=== PATIENT | male | born 1960 | race African-American/Black ===

== ENCOUNTER 2017-11-15 10:52 | Emergency (ER) | payer MEDICAID, OTHER ==
[~2017-11-15] VITALS: Ht 188 cm; Wt 81.6 kg
[2017-11-15 10:46] VITALS: BP 158/80
[~2017-11-15 10:52] MED LIST: NKM; PROCHLORPERAZINE5 MG ORAL; ZANTAC150 MG ORAL
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
[2017-11-15] MEDS ORDERED: Ketorolac 30mg Inj IV ONE (11:15)
[2017-11-15] MEDS ORDERED: Haloperidol 5mg/ml Inj IM ONE (11:15)
[2017-11-15 11:30] LABS: HEMOGLOBIN 15.7 G/DL (14.2-18.0); MEAN CORPUSCULAR VOLUME 98 FL (80-99); PLATELET COUNT 176 K/UL (150-450); RED BLOOD COUNT 4.68 M/UL (4.70-6.10); RED CELL DISTRIBUTION WIDTH 11.6 % (11.6-14.8); WHITE BLOOD COUNT 14.5 K/UL (4.8-10.8)
[2017-11-15 11:37] LABS: INR 0.9 (0.9-1.1)
[2017-11-15 11:56] LABS: APPEARANCE,URINE CLEAR; BILIRUBIN, URINE NEGATIVE (NEGATIVE); COLOR,URINE PALE YELLOW; GLUCOSE, URINE (UA) NEGATIVE (NEGATIVE); KETONES,URINE 4+ (NEGATIVE); LEUKOCYTE ESTERASE ,URINE 1+ (NEGATIVE); NITRITE,URINE POSITIVE (NEGATIVE); PH,URINE 8 (4.5-8.0); PROTEIN,URINE 1+ (NEGATIVE); UROBILINOGEN,URINE NORMAL MG/DL (0.0-1.0)
[2017-11-15 12:17] LABS: ALANINE AMINOTRANSFERASE 20 U/L (12-78); ALBUMIN 3.9 G/DL (3.4-5.0); ALKALINE PHOSPHATASE 68 U/L (46-116); ANION GAP 16 mmol/L (5-15); ASPARTATE AMINO TRANSFERASE 22 U/L (15-37); BILIRUBIN,TOTAL 0.6 MG/DL (0.2-1.0); BLOOD UREA NITROGEN 14 mg/dL (7-18); CALCIUM 9.4 MG/DL (8.5-10.1); CARBON DIOXIDE 21 MMOL/L (21-32); CHLORIDE 102 MMOL/L (98-107); CREATININE 0.9 MG/DL (0.55-1.30); SODIUM 139 MMOL/L (136-145)
[2017-11-15] MEDS ORDERED: LEVOFLOXACIN500 MG ORAL (13:36)
[2017-11-15] MEDS ORDERED: ACETAMINOPHEN-1 EAC1 ORAL (13:37)
[2017-11-15 13:48] VITALS: BP 145/78
[2017-11-15 14:06] VITALS: BP 145/78
--- NOTE | 2017-11-16 13:08 | Diagnostic Imaging Report ---
Indication: Testicular pain Technique: Multiplanar grayscale and color Doppler imaging of the scrotum Comparison: None Findings: The right testicle measures 5.4 x 2.9 x 3 cm. Color flow to the right testicle is documented. The right epididymis is mildly prominent measuring 1.6 x 1.4 cm. An epididymal cyst measuring 0.8 x 0.2 cm is noted. There is increased flow to the right epididymis. Asymmetrically increased color flow to the right testicle is noted when compared to the left. Echogenicity is homogeneous. No focal mass lesion appreciated. There is a small hydrocele. The left testicle measures 4 x 2.6 x 2.1 cm. Echogenicity is homogeneous. A 1.9 linear, nonshadowing focus of hyperechogenicity at the periphery of the testicle on transverse tube may be related to the mediastinum testis. Normal color flow to the left testicle is documented. The left epididymis is unremarkable in appearance. Trace hydrocele on the left. Impression: Asymmetric increased vascularity of the right testicle and epididymis compared to the left. Findings are concerning for acute epididymoorchitis on the right. Small, likely reactive right-sided hydrocele. No evidence of testicular torsion. Findings correspond with the preliminary report issued to the emergency department by the production technologist with minor variance.
--- NOTE | 2017-11-16 16:12 | Diagnostic Imaging Report ---
Indication: Abdominal pain Technique: CT of the abdomen and pelvis utilizing automated exposure control with intravenous contrast. Venous scanning performed. CT dose: Total DLP 805.82 mGycm; CTDI vol 13.88 mGy Comparison: None Findings: Dependent atelectasis noted in the lung bases. Heart size within normal limits. No pericardial effusion. Liver, gallbladder, spleen, adrenal glands and pancreas are unremarkable. Subcentimeter well-circumscribed low-attenuation lesion noted within the left kidney too small to fully characterize but likely representing a simple cyst. No urinary tract stones or hydronephrosis bilaterally. Bladder is underdistended but otherwise unremarkable. Prostate is mildly enlarged with chunky peripheral calcification. No evidence of bowel obstruction. No free intraperitoneal fluid or air is seen. A small bowel-small bowel intussusception is noted in the left lower quadrant, likely transient. No definite perienteric inflammatory changes appreciated. There is colonic diverticulosis without evidence to suggest an acute diverticulitis. There is thickening of some proximal small bowel loops which may reflect an enteritis in the appropriate clinical setting. Appendix is normal. Abdominal aorta is normal in caliber. No acute osseous abnormality is identified. IMPRESSION: Questionable thickening of some proximal small bowel loops may represent an enteritis (infectious of inflammatory) in the appropriate clinical setting. Scattered colonic diverticula without evidence of acute diverticulitis. Appendix is normal. Mild prostatomegaly. Additional findings as above. Findings discussed with Dr. Nicole of the ED on 11/16/17. The CT scanner at [facility] is accredited by the [employer] and the scans are performed using protocols designed to limit radiation exposure to as low as reasonably achievable to attain images of sufficient resolution adequate for diagnostic evaluation.
== END 2017-11-15 14:36 | disposition home or self-care (01) ==
LOC: EDBD 10:52 → EMR 13:41
DX: N45.1 Epididymitis (principal); F19.10 Other psychoactive substance abuse, uncomplicated; Z88.0 Allergy status to penicillin; K57.30 Diverticulosis of large intestine without perforation or abscess without bleeding
CPT/HCPCS: 36415; 74177; 76870; 80053; 80307; 81003; 83690; 85007; 85025; 85610; 85730; 86850; 86900; 86901; 87086; 87181; 96361; 96365; 96372; 96375; 99284; J1630; J1885; J1956; J2405; Q9967

== ENCOUNTER 2018-01-01 12:33 | Inpatient (IN) | payer MEDICAID, OTHER ==
[~2018-01-01] VITALS: Ht 193 cm; Wt 83.9 kg
[~2018-01-01 12:33] MED LIST changes: +ACETAMINOPHEN-1 EAC1 ORAL; +LEVOFLOXACIN500 MG ORAL
[2018-01-01 12:47] VITALS: BP 148/93
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
[2018-01-01] MEDS ORDERED: Clindamycin 600mg 50 ML IVPB ONE (13:15)
[2018-01-01] MEDS ORDERED: Morphine Sulfate 2mg/ml Inj IVP ONE (13:45)
[2018-01-01 13:49] LABS: BASOPHILS % (AUTO) 1.5 % (0.0-2.0); HEMATOCRIT 45.1 % (42.0-52.0); HEMOGLOBIN 15.2 G/DL (14.2-18.0); LYMPHOCYTES % (AUTO) 18.3 % (20.0-45.0); MEAN CORPUSCULAR VOLUME 97 FL (80-99); MONOCYTES % (AUTO) 7.9 % (1.0-10.0); NEUTROPHILS % (AUTO) 71.3 % (45.0-75.0); PLATELET COUNT 251 K/UL (150-450); RED BLOOD COUNT 4.65 M/UL (4.70-6.10); WHITE BLOOD COUNT 8.4 K/UL (4.8-10.8)
[2018-01-01] MEDS ORDERED: Tetanus/Diptheria/Pertussis Vaccine 0.5ml Syr IM ONE (14:15)
[2018-01-01 14:21] LABS: ANION GAP 8 mmol/L (5-15); BLOOD UREA NITROGEN 16 mg/dL (7-18); CALCIUM 8.7 MG/DL (8.5-10.1); CARBON DIOXIDE 26 MMOL/L (21-32); CHLORIDE 103 MMOL/L (98-107); CREATININE 0.9 MG/DL (0.55-1.30); POTASSIUM 3.8 MMOL/L (3.5-5.1); SODIUM 137 MMOL/L (136-145)
[2018-01-01 14:25] LABS: ALANINE AMINOTRANSFERASE 21 U/L (12-78); ALBUMIN 3.4 G/DL (3.4-5.0); ALBUMIN/GLOBULIN RATIO 0.9 (1.0-2.7); ALKALINE PHOSPHATASE 67 U/L (46-116); ASPARTATE AMINO TRANSFERASE 23 U/L (15-37); BILIRUBIN,TOTAL 0.2 MG/DL (0.2-1.0); CREATINE KINASE 225 U/L (26-308)
--- NOTE | 2018-01-01 14:34 | Diagnostic Imaging Report ---
Indication: Dyspnea Comparison: None A single view chest radiograph was obtained. Findings: Cardiomediastinal appearance is within normal limits for age. Pulmonary vascularity is appropriate. The diaphragmatic contour is smooth and costophrenic angles are sharp. No pleural effusions are identified. The bones are osteopenic. Impression: No acute findings
--- NOTE | 2018-01-01 14:43 | Diagnostic Imaging Report ---
Indication: Pain Comparison: None Findings: 3 views of the right foot were obtained. No definite fracture or malalignment demonstrated within the foot. Soft tissue swelling is present. The bones are osteopenic. Intramedullary emmy noted within the distal tibia. IMPRESSION: No acute findings. Soft tissue swelling, nonspecific
[2018-01-01] MEDS ORDERED: oxyCODONE HCL/Acetaminophen 5/325mg ORAL ONE (14:45)
[2018-01-01 16:03] VITALS: BP 142/93
[2018-01-01] MEDS ORDERED: Miralax 17gm pkt ORAL PRN (17:30)
[2018-01-01] MEDS ORDERED: Albuterol/Ipratropium 3ml neb HHN PRN (17:30)
[2018-01-01] MEDS ORDERED: Nitroglycerin Subl 0.4mg tab SL PRN (17:30)
[2018-01-01 18:10] VITALS: BP 152/85
[2018-01-01 18:30] VITALS: BP 148/91
[2018-01-01] MEDS ORDERED: Vancomycin 1.5 GM/D5W 250ML IVPB ONE (19:30)
[2018-01-01 20:00] VITALS: BP 151/102
[2018-01-01] MEDS: Morphine Sulfate 2mg/ml Inj IVP PRN (21:18)
--- NOTE | 2018-01-01 21:18 | Consultation ---
Consult Note Consult Note ID DIC # [id number] ETHEL PARK M.D. Jan 01, 2018 21:18
[2018-01-01] MEDS: metroNIDAZOLE 500mg tab ORAL SCH (22:51)
[2018-01-01] MEDS: Aztreonam Inj 1 GM in D5W 55 ML IVPB SCH (22:51)
[2018-01-01] MEDS: Heparin 5000 units/ml inj SUBQ SCH (22:55)
[2018-01-02] VITALS: BP 132/89
[2018-01-02] MEDS ORDERED: Vancomycin 1 GM in D5W 275 ML IV SCH (00:30)
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
[2018-01-02 04:00] VITALS: BP 125/71
[2018-01-02] MEDS: metroNIDAZOLE 500mg tab ORAL SCH ×3 (06:04→21:14)
[2018-01-02] MEDS: Vancomycin 1250mg/D5W 250ml IVPB SCH ×2 (06:04→18:22)
[2018-01-02] MEDS: Aztreonam Inj 1 GM in D5W 55 ML IVPB SCH (06:04)
[2018-01-02] MEDS: Morphine Sulfate 2mg/ml Inj IVP PRN ×4 (06:05→21:15)
[2018-01-02 07:18] LABS: BASOPHILS % (AUTO) 1.3 % (0.0-2.0); EOSINOPHILS % (AUTO) 1.5 % (0.0-3.0); HEMATOCRIT 41.4 % (42.0-52.0); HEMOGLOBIN 14.5 G/DL (14.2-18.0); MEAN CORPUSCULAR VOLUME 97 FL (80-99); MONOCYTES % (AUTO) 6.4 % (1.0-10.0); NEUTROPHILS % (AUTO) 62.8 % (45.0-75.0); PLATELET COUNT 217 K/UL (150-450); RED BLOOD COUNT 4.27 M/UL (4.70-6.10); WHITE BLOOD COUNT 6.9 K/UL (4.8-10.8)
[2018-01-02 07:45] LABS: ALANINE AMINOTRANSFERASE 19 U/L (12-78); ALBUMIN 2.9 G/DL (3.4-5.0); ALBUMIN/GLOBULIN RATIO 0.9 (1.0-2.7); ALKALINE PHOSPHATASE 59 U/L (46-116); ANION GAP 5 mmol/L (5-15); ASPARTATE AMINO TRANSFERASE 19 U/L (15-37); BILIRUBIN,TOTAL 0.3 MG/DL (0.2-1.0); BLOOD UREA NITROGEN 14 mg/dL (7-18); CALCIUM 8.3 MG/DL (8.5-10.1); CARBON DIOXIDE 29 MMOL/L (21-32); CHLORIDE 105 MMOL/L (98-107); CREATININE 0.8 MG/DL (0.55-1.30); POTASSIUM 3.7 MMOL/L (3.5-5.1); SODIUM 139 MMOL/L (136-145)
[2018-01-02 08:15] VITALS: BP 131/86
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
[2018-01-02] MEDS: Heparin 5000 units/ml inj SUBQ SCH ×2 (10:13→20:18)
--- NOTE | 2018-01-02 10:31 | Consultation ---
Consult Note Assessment/Plan A/ 1) Cellulitis right foot abscess? 2) Hardware right leg P/ 1) Cont IV abx per ID. Will monitor on abx. No surgical intervention at this time 2) X-rays reviewed. No gas, no osteo 3) Bone scan pending. MRI C/I 2/2 hardware in leg 4) Will order wound care Thank you Scott Leahy DPM Jan 02, 2018 10:31
[2018-01-02 12:00] VITALS: BP 128/82
[2018-01-02] MEDS: Aztreonam Inj 1 GM in NS 55 ML IVPB SCH ×2 (14:10→20:18)
[2018-01-02 16:00] VITALS: BP 128/85
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
[2018-01-02 19:49] VITALS: BP 132/86
[2018-01-03] VITALS: BP 130/78
[2018-01-03 04:00] VITALS: BP 124/83
[2018-01-03] MEDS: Morphine Sulfate 2mg/ml Inj IVP PRN ×4 (04:25→20:00)
[2018-01-03] MEDS: Aztreonam Inj 1 GM in NS 55 ML IVPB SCH ×3 (05:13→21:51)
[2018-01-03] MEDS: metroNIDAZOLE 500mg tab ORAL SCH ×3 (05:13→21:51)
[2018-01-03] MEDS: Vancomycin 1250mg/D5W 250ml IVPB SCH ×3 (07:00→23:58)
[2018-01-03 08:00] VITALS: BP 129/83
[2018-01-03] MEDS: Heparin 5000 units/ml inj SUBQ SCH ×2 (09:00→20:05)
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
[2018-01-03 11:47] VITALS: BP 150/78
[2018-01-03 16:00] VITALS: BP 147/81
[2018-01-03] MEDS ORDERED: Tubing IV Secondary IV ONE (18:17)
[2018-01-03] MEDS ORDERED: NS 500ML ONE (18:17)
[2018-01-03 20:00] VITALS: BP 127/84
[2018-01-04] VITALS: BP 139/105
[2018-01-04] MEDS: Morphine Sulfate 2mg/ml Inj IVP PRN ×4 (01:10→21:18)
[2018-01-04 04:23] VITALS: BP 129/89
[2018-01-04] MEDS: metroNIDAZOLE 500mg tab ORAL SCH ×3 (05:26→21:18)
[2018-01-04] MEDS: Aztreonam Inj 1 GM in NS 55 ML IVPB SCH ×3 (05:26→21:21)
[2018-01-04 08:00] VITALS: BP 148/84
[2018-01-04 08:28] LABS: BASOPHILS % (AUTO) 0.8 % (0.0-2.0); EOSINOPHILS % (AUTO) 1.4 % (0.0-3.0); HEMATOCRIT 43.7 % (42.0-52.0); HEMOGLOBIN 14.9 G/DL (14.2-18.0); LYMPHOCYTES % (AUTO) 13.9 % (20.0-45.0); MEAN CORPUSCULAR VOLUME 97 FL (80-99); MONOCYTES % (AUTO) 7.3 % (1.0-10.0); NEUTROPHILS % (AUTO) 76.6 % (45.0-75.0); PLATELET COUNT 217 K/UL (150-450); RED CELL DISTRIBUTION WIDTH 12.1 % (11.6-14.8); WHITE BLOOD COUNT 8.6 K/UL (4.8-10.8)
[2018-01-04] MEDS: Vancomycin 1250mg/D5W 250ml IVPB SCH ×2 (08:32→16:00)
[2018-01-04] MEDS: Heparin 5000 units/ml inj SUBQ SCH ×2 (08:42→21:00)
[2018-01-04 08:57] LABS: ANION GAP 3 mmol/L (5-15); BLOOD UREA NITROGEN 13 mg/dL (7-18); CALCIUM 8.5 MG/DL (8.5-10.1); CARBON DIOXIDE 30 MMOL/L (21-32); CHLORIDE 105 MMOL/L (98-107); CREATININE 0.9 MG/DL (0.55-1.30); POTASSIUM 4.3 MMOL/L (3.5-5.1); SODIUM 138 MMOL/L (136-145)
[2018-01-04 12:00] VITALS: BP 150/80
--- NOTE | 2018-01-04 14:48 | Pulmonology Progress Note ---
Assessment/Plan Problems: (1) Cellulitis of foot Assessment/Plan bone scan pending continue abx check cultures check electrolytes Subjective ROS Limited/Unobtainable: No Constitutional: Reports: no symptoms HEENT: Repors: no symptoms Respiratory: Reports: no symptoms Allergies: Coded Allergies: PENICILLINS (Unverified Adverse Reaction, Unknown, 02/17/15) Pt. states "I don't remember, it happened when I was a kid". Objective Last 24 Hour Vital Signs Date Time Temp Pulse Resp B/P (MAP) Pulse Ox O2 Delivery O2 Flow Rate FiO2 01/04/18 12:00 97.4 61 20 150/80 97 97.4 01/04/18 08:00 64 16 Room Air 21 01/04/18 08:00 97.7 61 20 148/84 97 97.7 01/04/18 04:23 97.7 55 20 129/89 97 97.7 01/04/18 00:00 97.3 59 18 139/105 100 97.3 01/03/18 20:00 97.7 61 16 127/84 97 97.7 01/03/18 19:05 69 18 Room Air 21 01/03/18 16:00 98.6 62 19 147/81 98 98.6 Intake and Output 01/03/18 01/04/18 19:00 07:00 Intake Total 1505.000 ml 960.000 ml Balance 1505.000 ml 960.000 ml Intake Oral 1200 ml 600 ml IV Total 305.000 ml 360.000 ml # Voids 5 2 # Bowel Movements 3 General Appearance: WD/WN HEENT: normocephalic, atraumatic Respiratory/Chest: chest wall non-tender, lungs clear Cardiovascular: normal peripheral pulses, normal rate Abdomen: normal bowel sounds, soft, non tender, no organomegaly Genitourinary: normal external genitalia Extremities: no cyanosis, other - clean dressing Skin: no rash 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 Complete 01/03/18 11:30 Stool Clostridium difficile Toxin Assay - Final Complete 01/01/18 18:03 Rectum VRE Culture - Final NO VANCOMYCIN RESISTANT ENTEROCOCCUS ... Complete Laboratory Tests 01/04/18 07:50: White Blood Count 8.6, Red Blood Count 4.50L, Hemoglobin 14.9, Hematocrit 43.7, Mean Corpuscular Volume 97, Mean Corpuscular Hemoglobin 33.2H, Mean Corpuscular Hemoglobin Concent 34.2, Red Cell Distribution Width 12.1, Platelet Count 217, Mean Platelet Volume 7.9, Neutrophils (%) (Auto) 76.6H, Lymphocytes (%) (Auto) 13.9L, Monocytes (%) (Auto) 7.3, Eosinophils (%) (Auto) 1.4, Basophils (%) (Auto ) 0.8, Erythrocyte Sedimentation Rate 11, Sodium Level 138, Potassium Level 4.3 , Chloride Level 105, Carbon Dioxide Level 30, Anion Gap 3L, Blood Urea Nitrogen 13, Creatinine 0.9, Estimat Glomerular Filtration Rate > 60, Glucose Level 89, Calcium Level 8.5, C-Reactive Protein, Quantitative 0.7 Current Medications Medications (Trade) Dose Ordered Sig/Luiz Route PRN Reason Start Time Stop Time Status Last Admin Dose Admin Acetaminophen (Tylenol) 650 mg Q4H PRN ORAL fever 01/01/18 17:30 01/31/18 17:29 Albuterol/ Ipratropium (Albuterol/ Ipratropium) 3 ml EVERY 4 HOURS PRN HHN Shortness of Breath 01/01/18 17:30 01/06/18 17:29 Aztreonam 1 gm/ Sodium Chloride 55 ml @ 110 mls/hr Q8HR IVPB 01/02/18 14:00 01/09/18 13:59 01/04/18 13:58 Dextrose (Dextrose 50%) STAT PRN IV Hypoglycemia 01/01/18 17:30 01/31/18 17:29 Heparin Sodium (Porcine) (Heparin 5000 units/ml) 5,000 units EVERY 12 HOURS SUBQ 01/01/18 21:00 01/31/18 20:59 01/02/18 10:13 Metronidazole (Flagyl) 500 mg Q8HR ORAL 01/01/18 22:00 01/08/18 21:59 01/04/18 13:58 Morphine Sulfate (Morphine Sulfate) 2 mg EVERY 4 HOURS PRN IVP Moderate Pain (Pain Scale 4-6) 01/01/18 17:30 01/08/18 17:29 01/04/18 13:59 Nitroglycerin (Ntg) 0.4 mg q5mins PRN SL Prn Chest Pain 01/01/18 17:30 01/31/18 17:29 Ondansetron HCl (Zofran) 4 mg Q6H PRN IVP Nausea & Vomiting 01/01/18 17:30 01/31/18 17:29 Polyethylene Glycol (Miralax) 17 gm DAILYPRN PRN ORAL Constipation 01/01/18 17:30 01/31/18 17:29 Temazepam (Restoril) 15 mg HSPRN PRN ORAL Insomnia 01/01/18 17:30 01/08/18 17:29 Vancomycin HCl/ Dextrose 250 ml @ 166.667 mls/hr Q8H IVPB 01/03/18 16:00 01/08/18 15:59 01/04/18 08:32 MICHAEL ROWLAND Jan 04, 2018 14:48
[2018-01-04 16:00] VITALS: BP 157/83
--- NOTE | 2018-01-04 17:21 | General Progress Note ---
Progress Note Progress Note Patient is getting bone scan Vitals remain stable No leukocytosis Will return tomorrow to re-eval D/W nurse Scott Pablo DPM Jan 04, 2018 17:20
[2018-01-04] MEDS: Vancomycin 1gm/D5W 275ml IVPB SCH ×2 (17:46)
[2018-01-04 20:00] VITALS: BP 143/96
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
--- NOTE | 2018-01-04 23:13 | Consultation ---
History of Present Illness General Date patient seen: Jan 04, 2018 Chief Complaint: Pain Present Illness HPI 57-year-old, homeless male, who was admitted to [facility] on 01/01/2018 for cellulitis. The patient states that he had a callus in the area that he was self treating and had significant pain when ambulating. the pt is uncooperative and argumentative with staff. Allergies: Coded Allergies: PENICILLINS (Unverified Adverse Reaction, Unknown, 02/17/15) Pt. states "I don't remember, it happened when I was a kid". Medication History Scheduled Levofloxacin (Levofloxacin*), 500 MG ORAL DAILY No Known Medications* (NKM - No Known Medications*), 0 ., (Reported) Prochlorperazine Maleate* (Compazine*), 5 MG ORAL Q6H Ranitidine Hcl* (Zantac*), 150 MG ORAL DAILY Scheduled PRN Acetaminophen With Codeine (T#3) (Tylenol #3 Tab*), 1 TAB ORAL Q8H PRN for For Pain Patient History Healthcare decision maker Resuscitation status Full Code Advanced Directive on File No Physical Exam Last 24 Hour Vital Signs Date Time Temp Pulse Resp B/P (MAP) Pulse Ox O2 Delivery O2 Flow Rate FiO2 01/04/18 20:00 97.8 69 21 143/96 97 97.8 01/04/18 19:33 69 20 Room Air 21 01/04/18 16:00 97.5 79 20 157/83 98 97.5 01/04/18 12:00 97.4 61 20 150/80 97 97.4 01/04/18 08:00 64 16 Room Air 21 01/04/18 08:00 97.7 61 20 148/84 97 97.7 01/04/18 04:23 97.7 55 20 129/89 97 97.7 01/04/18 00:00 97.3 59 18 139/105 100 97.3 Intake and Output 01/03/18 01/04/18 19:00 07:00 Intake Total 1505.000 ml 960.000 ml Balance 1505.000 ml 960.000 ml Intake Oral 1200 ml 600 ml IV Total 305.000 ml 360.000 ml # Voids 5 2 # Bowel Movements 3 Laboratory Tests Test 01/04/18 07:50 01/04/18 15:30 White Blood Count 8.6 K/UL (4.8-10.8) Red Blood Count 4.50 M/UL (4.70-6.10) L Hemoglobin 14.9 G/DL (14.2-18.0) Hematocrit 43.7 % (42.0-52.0) Mean Corpuscular Volume 97 FL (80-99) Mean Corpuscular Hemoglobin 33.2 PG (27.0-31.0) H Mean Corpuscular Hemoglobin Concent 34.2 G/DL (32.0-36.0) Red Cell Distribution Width 12.1 % (11.6-14.8) Platelet Count 217 K/UL (150-450) Mean Platelet Volume 7.9 FL (6.5-10.1) Neutrophils (%) (Auto) 76.6 % (45.0-75.0) H Lymphocytes (%) (Auto) 13.9 % (20.0-45.0) L Monocytes (%) (Auto) 7.3 % (1.0-10.0) Eosinophils (%) (Auto) 1.4 % (0.0-3.0) Basophils (%) (Auto) 0.8 % (0.0-2.0) Erythrocyte Sedimentation Rate 11 MM/HR (0-20) Sodium Level 138 MMOL/L (136-145) Potassium Level 4.3 MMOL/L (3.5-5.1) Chloride Level 105 MMOL/L (98-107) Carbon Dioxide Level 30 MMOL/L (21-32) Anion Gap 3 mmol/L (5-15) L Blood Urea Nitrogen 13 mg/dL (7-18) Creatinine 0.9 MG/DL (0.55-1.30) Estimat Glomerular Filtration Rate > 60 mL/min (>60) Glucose Level 89 MG/DL (74-106) Calcium Level 8.5 MG/DL (8.5-10.1) C-Reactive Protein, Quantitative 0.7 mg/dL (0.00-0.90) Vancomycin Level Trough 17.9 ug/mL (5.0-12.0) H Height (Feet): 6 Height (Inches): 4.00 Weight (Pounds): 185 Medications Current Medications Medications (Trade) Dose Ordered Sig/Luiz Route PRN Reason Start Time Stop Time Status Last Admin Dose Admin Acetaminophen (Tylenol) 650 mg Q4H PRN ORAL fever 01/01/18 17:30 01/31/18 17:29 Albuterol/ Ipratropium (Albuterol/ Ipratropium) 3 ml EVERY 4 HOURS PRN HHN Shortness of Breath 01/01/18 17:30 01/06/18 17:29 Aztreonam 1 gm/ Sodium Chloride 55 ml @ 110 mls/hr Q8HR IVPB 01/02/18 14:00 01/09/18 13:59 01/04/18 21:21 Dextrose (Dextrose 50%) STAT PRN IV Hypoglycemia 01/01/18 17:30 01/31/18 17:29 Heparin Sodium (Porcine) (Heparin 5000 units/ml) 5,000 units EVERY 12 HOURS SUBQ 01/01/18 21:00 01/31/18 20:59 01/02/18 10:13 Metronidazole (Flagyl) 500 mg Q8HR ORAL 01/01/18 22:00 01/08/18 21:59 01/04/18 21:18 Morphine Sulfate (Morphine Sulfate) 2 mg EVERY 4 HOURS PRN IVP Moderate Pain (Pain Scale 4-6) 01/01/18 17:30 01/08/18 17:29 01/04/18 21:18 Nitroglycerin (Ntg) 0.4 mg q5mins PRN SL Prn Chest Pain 01/01/18 17:30 01/31/18 17:29 Ondansetron HCl (Zofran) 4 mg Q6H PRN IVP Nausea & Vomiting 01/01/18 17:30 01/31/18 17:29 Polyethylene Glycol (Miralax) 17 gm DAILYPRN PRN ORAL Constipation 01/01/18 17:30 01/31/18 17:29 Temazepam (Restoril) 15 mg HSPRN PRN ORAL Insomnia 01/01/18 17:30 01/08/18 17:29 Vancomycin HCl 1 gm/Dextrose 275 ml @ 183.708 mls/hr Q8HR@0100,0900,1700 IVPB 01/04/18 17:00 01/09/18 16:59 01/04/18 17:46 Assessment/Plan Status: stable Assessment/Plan 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 Jan 04, 2018 23:13
[2018-01-05] VITALS: BP 134/74
[2018-01-05] MEDS: Vancomycin 1gm/D5W 275ml IVPB SCH ×6 (01:21→18:28)
[2018-01-05] MEDS: Morphine Sulfate 2mg/ml Inj IVP PRN ×4 (01:33→18:48)
[2018-01-05 04:00] VITALS: BP 110/74
[2018-01-05] MEDS: Aztreonam Inj 1 GM in NS 55 ML IVPB SCH ×3 (05:29→22:17)
[2018-01-05] MEDS: metroNIDAZOLE 500mg tab ORAL SCH ×3 (05:29→22:17)
[2018-01-05 07:50] LABS: EOSINOPHILS % (AUTO) 1.1 % (0.0-3.0); HEMATOCRIT 43.5 % (42.0-52.0); HEMOGLOBIN 14.7 G/DL (14.2-18.0); LYMPHOCYTES % (AUTO) 17.7 % (20.0-45.0); MEAN CORPUSCULAR VOLUME 97 FL (80-99); MONOCYTES % (AUTO) 6.9 % (1.0-10.0); NEUTROPHILS % (AUTO) 73.3 % (45.0-75.0); PLATELET COUNT 215 K/UL (150-450); RED BLOOD COUNT 4.51 M/UL (4.70-6.10); RED CELL DISTRIBUTION WIDTH 12.1 % (11.6-14.8); WHITE BLOOD COUNT 7.9 K/UL (4.8-10.8)
[2018-01-05 08:00] VITALS: BP 144/69
[2018-01-05 08:37] LABS: ALANINE AMINOTRANSFERASE 33 U/L (12-78); ALBUMIN 2.7 G/DL (3.4-5.0); ALBUMIN/GLOBULIN RATIO 0.8 (1.0-2.7); ALKALINE PHOSPHATASE 61 U/L (46-116); ANION GAP 5 mmol/L (5-15); ASPARTATE AMINO TRANSFERASE 31 U/L (15-37); BILIRUBIN,TOTAL 0.2 MG/DL (0.2-1.0); BLOOD UREA NITROGEN 13 mg/dL (7-18); CALCIUM 8.5 MG/DL (8.5-10.1); CARBON DIOXIDE 30 MMOL/L (21-32); CHLORIDE 106 MMOL/L (98-107); CREATININE 0.9 MG/DL (0.55-1.30); PHOSPHORUS 3.5 MG/DL (2.5-4.9); POTASSIUM 4.2 MMOL/L (3.5-5.1); SODIUM 141 MMOL/L (136-145)
[2018-01-05] MEDS: Heparin 5000 units/ml inj SUBQ SCH ×2 (09:00→21:00)
--- NOTE | 2018-01-05 10:51 | Diagnostic Imaging Report ---
APPROVED REPORT CPT Code: 15100 Present Symptoms Comments: R/O DVT BILATERAL: Imaging reveals a patent deep venous system bilaterally. There is no evidence of thrombus within the femoral, popliteal or tibial segments. The greater saphenous veins are also within normal limits. Doppler indicates normal spontaneous flow within these segments.
--- NOTE | 2018-01-05 11:58 | Pulmonology Progress Note ---
Assessment/Plan Problems: (1) Cellulitis of foot Assessment/Plan bone scan pending continue abx, ID managing it check cultures check electrolytes symptoamtic treatment Subjective ROS Limited/Unobtainable: No Interval Events: no new complains Allergies: Coded Allergies: PENICILLINS (Unverified Adverse Reaction, Unknown, 02/17/15) Pt. states "I don't remember, it happened when I was a kid". Objective Last 24 Hour Vital Signs Date Time Temp Pulse Resp B/P (MAP) Pulse Ox O2 Delivery O2 Flow Rate FiO2 01/05/18 08:00 98.3 63 20 144/69 95 98.3 01/05/18 07:49 63 20 Room Air 21 01/05/18 04:00 98.2 61 21 110/74 97 98.2 01/05/18 04:00 Room Air 01/05/18 00:00 98.4 55 21 134/74 100 98.4 01/05/18 00:00 Room Air 01/04/18 20:00 97.8 69 21 143/96 97 97.8 01/04/18 20:00 Room Air 01/04/18 19:33 69 20 Room Air 21 01/04/18 16:00 97.5 79 20 157/83 98 97.5 01/04/18 12:00 97.4 61 20 150/80 97 97.4 Intake and Output 01/04/18 01/05/18 19:00 07:00 Intake Total 1313.708 ml 385.000 ml Balance 1313.708 ml 385.000 ml Intake Oral 1020 ml IV Total 293.708 ml 385.000 ml # Voids 5 2 General Appearance: WD/WN HEENT: normocephalic, atraumatic Respiratory/Chest: chest wall non-tender, lungs clear Cardiovascular: normal peripheral pulses, regular rhythm Abdomen: normal bowel sounds, soft, non tender, no organomegaly Genitourinary: normal external genitalia Extremities: no clubbing Skin: no lesions Neurologic/Psychiatric: dinkey engineer II-XII grossly normal Microbiology Date/Time Source Procedure Growth Status 01/03/18 11:30 Stool Clostridium difficile Toxin Assay - Final Complete Laboratory Tests 01/04/18 15:30: Vancomycin Level Trough 17.9H 01/05/18 07:00: White Blood Count 7.9, Red Blood Count 4.51L, Hemoglobin 14.7, Hematocrit 43.5, Mean Corpuscular Volume 97, Mean Corpuscular Hemoglobin 32.6H, Mean Corpuscular Hemoglobin Concent 33.8, Red Cell Distribution Width 12.1, Platelet Count 215, Mean Platelet Volume 7.7, Neutrophils (%) (Auto) 73.3, Lymphocytes (%) (Auto) 17.7L, Monocytes (%) (Auto) 6.9, Eosinophils (%) (Auto) 1.1, Basophils (%) (Auto ) 1.0, Sodium Level 141, Potassium Level 4.2, Chloride Level 106, Carbon Dioxide Level 30, Anion Gap 5, Blood Urea Nitrogen 13, Creatinine 0.9, Estimat Glomerular Filtration Rate > 60, Glucose Level 95, Calcium Level 8.5, Phosphorus Level 3.5, Magnesium Level 2.0, Total Bilirubin 0.2, Aspartate Amino Transf (AST/SGOT) 31, Alanine Aminotransferase (ALT/SGPT) 33, Alkaline Phosphatase 61, Total Protein 6.0L, Albumin 2.7L, Globulin 3.3, Albumin/ Globulin Ratio 0.8L Current Medications Medications (Trade) Dose Ordered Sig/Luiz Route PRN Reason Start Time Stop Time Status Last Admin Dose Admin Acetaminophen (Tylenol) 650 mg Q4H PRN ORAL fever 01/01/18 17:30 01/31/18 17:29 Albuterol/ Ipratropium (Albuterol/ Ipratropium) 3 ml EVERY 4 HOURS PRN HHN Shortness of Breath 01/01/18 17:30 01/06/18 17:29 Aztreonam 1 gm/ Sodium Chloride 55 ml @ 110 mls/hr Q8HR IVPB 01/02/18 14:00 01/09/18 13:59 01/05/18 05:29 Dextrose (Dextrose 50%) STAT PRN IV Hypoglycemia 01/01/18 17:30 01/31/18 17:29 Heparin Sodium (Porcine) (Heparin 5000 units/ml) 5,000 units EVERY 12 HOURS SUBQ 01/01/18 21:00 01/31/18 20:59 01/02/18 10:13 Metronidazole (Flagyl) 500 mg Q8HR ORAL 01/01/18 22:00 01/08/18 21:59 01/05/18 05:29 Morphine Sulfate (Morphine Sulfate) 2 mg EVERY 4 HOURS PRN IVP Moderate Pain (Pain Scale 4-6) 01/01/18 17:30 01/08/18 17:29 01/05/18 07:12 Nitroglycerin (Ntg) 0.4 mg q5mins PRN SL Prn Chest Pain 01/01/18 17:30 01/31/18 17:29 Ondansetron HCl (Zofran) 4 mg Q6H PRN IVP Nausea & Vomiting 01/01/18 17:30 01/31/18 17:29 Polyethylene Glycol (Miralax) 17 gm DAILYPRN PRN ORAL Constipation 01/01/18 17:30 01/31/18 17:29 Temazepam (Restoril) 15 mg HSPRN PRN ORAL Insomnia 01/01/18 17:30 01/08/18 17:29 Vancomycin HCl 1 gm/Dextrose 275 ml @ 183.708 mls/hr Q8HR@0100,0900,1700 IVPB 01/04/18 17:00 01/09/18 16:59 01/05/18 09:27 MICHAEL ROWLAND Jan 05, 2018 11:58
[2018-01-05 12:00] VITALS: BP 142/96
--- NOTE | 2018-01-05 12:21 | Diagnostic Imaging Report ---
Indication: Cellulitis of the right foot. Technique: 24.3 mCi of technetium 99 M-MDP was injected intravenously. A triple phase bone scan was then performed with blood flow, blood pool and delayed planar imaging in the region of interest. Several spot images were also obtained. Comparison: None Findings: . There is increased blood flow to the right foot. Blood pool images demonstrate increased activity in the area of the hallux. Delayed planar images show increased activity within the head of the metatarsal and the first phalanges. Findings are suspicious for osteomyelitis. Please correlate clinically with regard to location of the foot ulcer. MRI may be of benefit for further evaluation of a specific anatomy involved and to assess for surgical planning if needed. Impression: Suspicion of osteomyelitis involving the hallux. Please correlate clinically for location of the ulceration.
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
[2018-01-05 16:00] VITALS: BP 129/86
--- NOTE | 2018-01-05 16:43 | Podiatric Progress Note ---
Assessment/Plan Patient Neto Jimenez is a 57 year old male who was admitted on Jan 01, 2018 at 16:38 with Problems: Assessment/Plan A/ 1) Osteo noted on bone scan 2) Cellulitis right foot resolving 2) Hardware right leg P/ 1) Cont IV abx per ID. Will d/w ID about jail abx to treat osteo 2) Cont wound care 3) Will order post op shoe Subjective Allergies: Coded Allergies: PENICILLINS (Unverified Adverse Reaction, Unknown, 02/17/15) Pt. states "I don't remember, it happened when I was a kid". Subjective Patient's pain improved. He is concerned about his cats. Objective Exam Last 24 Hour Vital Signs Date Time Temp Pulse Resp B/P (MAP) Pulse Ox O2 Delivery O2 Flow Rate FiO2 01/05/18 12:00 97.8 66 20 142/96 94 97.8 01/05/18 08:00 98.3 63 20 144/69 95 98.3 01/05/18 07:49 63 20 Room Air 21 01/05/18 04:00 98.2 61 21 110/74 97 98.2 01/05/18 04:00 Room Air 01/05/18 00:00 98.4 55 21 134/74 100 98.4 01/05/18 00:00 Room Air 01/04/18 20:00 97.8 69 21 143/96 97 97.8 01/04/18 20:00 Room Air 01/04/18 19:33 69 20 Room Air 21 Laboratory Tests Test 01/05/18 07:00 White Blood Count 7.9 K/UL (4.8-10.8) Red Blood Count 4.51 M/UL (4.70-6.10) L Hemoglobin 14.7 G/DL (14.2-18.0) Hematocrit 43.5 % (42.0-52.0) Mean Corpuscular Volume 97 FL (80-99) Mean Corpuscular Hemoglobin 32.6 PG (27.0-31.0) H Mean Corpuscular Hemoglobin Concent 33.8 G/DL (32.0-36.0) Red Cell Distribution Width 12.1 % (11.6-14.8) Platelet Count 215 K/UL (150-450) Mean Platelet Volume 7.7 FL (6.5-10.1) Neutrophils (%) (Auto) 73.3 % (45.0-75.0) Lymphocytes (%) (Auto) 17.7 % (20.0-45.0) L Monocytes (%) (Auto) 6.9 % (1.0-10.0) Eosinophils (%) (Auto) 1.1 % (0.0-3.0) Basophils (%) (Auto) 1.0 % (0.0-2.0) Sodium Level 141 MMOL/L (136-145) Potassium Level 4.2 MMOL/L (3.5-5.1) Chloride Level 106 MMOL/L (98-107) Carbon Dioxide Level 30 MMOL/L (21-32) Anion Gap 5 mmol/L (5-15) Blood Urea Nitrogen 13 mg/dL (7-18) Creatinine 0.9 MG/DL (0.55-1.30) Estimat Glomerular Filtration Rate > 60 mL/min (>60) Glucose Level 95 MG/DL (74-106) Calcium Level 8.5 MG/DL (8.5-10.1) Phosphorus Level 3.5 MG/DL (2.5-4.9) Magnesium Level 2.0 MG/DL (1.8-2.4) Total Bilirubin 0.2 MG/DL (0.2-1.0) Aspartate Amino Transf (AST/SGOT) 31 U/L (15-37) Alanine Aminotransferase (ALT/SGPT) 33 U/L (12-78) Alkaline Phosphatase 61 U/L (46-116) Total Protein 6.0 G/DL (6.4-8.2) L Albumin 2.7 G/DL (3.4-5.0) L Globulin 3.3 g/dL Albumin/Globulin Ratio 0.8 (1.0-2.7) L Microbiology Date/Time Source Procedure Growth Status 01/01/18 13:58 Blood Blood Culture - Preliminary NO GROWTH AFTER 48 HOURS Resulted 01/01/18 18:03 Nasal Nares MRSA Culture - Final NO METHICILLIN RESISTANT STAPH AUREUS... Complete 01/03/18 11:30 Stool Clostridium difficile Toxin Assay - Final Complete 01/01/18 18:03 Rectum VRE Culture - Final NO VANCOMYCIN RESISTANT ENTEROCOCCUS ... Complete Dermatological Dermatological Narrative Right foot plantar wound scant discharge. No purulence, no malodor. Maceration and blistering resolved. No pain with palpation of area. Edema resolved. Scott Pablo DPM Jan 05, 2018 16:43
[2018-01-05] MEDS: Heparin 2000 units/Ns 1000ml INJ SCH (17:00)
[2018-01-05] MEDS: Lidocaine 1% MPF 10mg/ml 5ml INJ SCH (17:00)
[2018-01-05 20:00] VITALS: BP 129/80
[2018-01-05] MEDS: Dyna-Hex 2% Top Sol 2oz TOPIC SCH (20:00)
[2018-01-06] VITALS: BP 124/69
[2018-01-06] MEDS: Vancomycin 1gm/D5W 275ml IVPB SCH ×6 (01:01→17:01)
[2018-01-06] MEDS: Morphine Sulfate 2mg/ml Inj IVP PRN ×5 (01:07→21:03)
[2018-01-06 04:00] VITALS: BP 128/80
[2018-01-06] MEDS: metroNIDAZOLE 500mg tab ORAL SCH ×3 (05:21→21:03)
[2018-01-06] MEDS: Aztreonam Inj 1 GM in NS 55 ML IVPB SCH ×3 (05:22→21:03)
[2018-01-06 08:00] VITALS: BP 124/77
[2018-01-06] MEDS: Heparin 5000 units/ml inj SUBQ SCH ×2 (09:00→21:00)
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
[2018-01-06 12:00] VITALS: BP 140/84
--- NOTE | 2018-01-06 15:10 | Diagnostic Imaging Report ---
Indication: buttermaker venous access Findings: After the indications, procedure, risks, complications, and alternatives of the procedure were explained, written informed consent was obtained. The left upper extremity was prepped with alcohol. All elements of maximal sterile barrier technique were followed including usage of a cap, mask, sterile gown, sterile gloves, hand hygiene and a large sterile sheet. Sonographic evaluation of the upper extremity was performed demonstrating a patent and compressible basilic vein. Access was obtained under real-time ultrasound guidance (with utilization of sterile gel and sterile probe cover) and digital image was saved and archived. An .018 wire was introduced. Needle exchanged for a 5 Wolof peel-away sheath. Measurements were obtained. A 5 Wolof dual-lumen Power PICC line catheter was cut to 45 cm and introduced over the wire. Peel-away sheath and wire were removed.Catheter was secured to the skin using 2-0 Prolene suture. Both ports aspirate and flush easily. Fluoroscopic images show distal tip in the superior vena cava. Total fluoroscopic time 0.3 minutes Impression: Successful placement of an upper extremity PICC line catheter
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
[2018-01-06 16:00] VITALS: BP 156/89
[2018-01-06] MEDS: Heparin 2000 units/Ns 1000ml INJ SCH (16:59)
[2018-01-06] MEDS: Lidocaine 1% MPF 10mg/ml 5ml INJ SCH (16:59)
[2018-01-06 20:00] VITALS: BP 126/72
[2018-01-06] MEDS: Dyna-Hex 2% Top Sol 2oz TOPIC SCH (21:03)
[2018-01-07] VITALS: BP 124/78
[2018-01-07] MEDS: Vancomycin 1gm/D5W 275ml IVPB SCH ×4 (01:20→09:00)
[2018-01-07] MEDS: Morphine Sulfate 2mg/ml Inj IVP PRN ×2 (01:20→05:46)
[2018-01-07 04:00] VITALS: BP 123/83
[2018-01-07] MEDS ORDERED: METRONIDAZ500 MG/100 ORAL (04:39)
[2018-01-07] MEDS ORDERED: CIPRO500 MG/51 PO (04:47)
[2018-01-07] MEDS ORDERED: METRONIDAZOLE500 MG ORAL (04:59)
[2018-01-07] MEDS ORDERED: VANCOMYCIN1 GM/2502 IVPB (05:07)
[2018-01-07] MEDS: metroNIDAZOLE 500mg tab ORAL SCH (05:45)
[2018-01-07] MEDS: Aztreonam Inj 1 GM in NS 55 ML IVPB SCH (05:45)
[2018-01-07 08:00] VITALS: BP 125/80
[2018-01-07] MEDS: Heparin 5000 units/ml inj SUBQ SCH (09:00)
[2018-01-07] MEDS ORDERED: NS 275ml ONE (10:51)
--- NOTE | 2018-01-07 16:08 | General Progress Note ---
Assessment/Plan Status: stable Assessment/Plan mdd narcissistic pers reluctant to take meds Subjective Date patient seen: Jan 07, 2018 Neurologic/Psychiatric: Reports: anxiety, depressed, emotional problems Allergies: Coded Allergies: PENICILLINS (Unverified Adverse Reaction, Unknown, 02/17/15) Pt. states "I don't remember, it happened when I was a kid". Objective Last 24 Hour Vital Signs Date Time Temp Pulse Resp B/P (MAP) Pulse Ox O2 Delivery O2 Flow Rate FiO2 01/07/18 08:00 98.0 60 18 125/80 98 Room Air 98.0 01/07/18 04:00 97.8 55 19 123/83 99 Room Air 97.8 01/07/18 04:00 99 Room Air 01/07/18 00:00 98.2 65 20 124/78 98 98.2 01/07/18 00:00 98 Room Air 01/06/18 20:00 95 Room Air 01/06/18 20:00 98.5 69 20 126/72 95 98.5 Intake and Output 01/06/18 01/07/18 19:00 07:00 Intake Total 1085.000 ml 403.708 ml Balance 1085.000 ml 403.708 ml Intake Oral 480 ml IV Total 605.000 ml 403.708 ml # Voids 2 1 Height (Feet): 6 Height (Inches): 4.00 Weight (Pounds): 185 General Appearance: no apparent distress, alert Neurologic: alert, oriented x 3, responsive, normal mood/affect Nicole Ramos M.D. Jan 07, 2018 16:08
--- NOTE | 2018-01-07 18:19 | Pulmonology Progress Note ---
Assessment/Plan Problems: (1) Cellulitis of foot (2) Osteomyelitis Assessment/Plan continue abx, ID managing it, pt will need 5 weeks of iv abx check cultures check electrolytes symptoamtic treatment being discharged to some friends home/garage Subjective ROS Limited/Unobtainable: No Constitutional: Reports: no symptoms HEENT: Repors: no symptoms Respiratory: Reports: no symptoms Allergies: Coded Allergies: PENICILLINS (Unverified Adverse Reaction, Unknown, 02/17/15) Pt. states "I don't remember, it happened when I was a kid". Objective Last 24 Hour Vital Signs Date Time Temp Pulse Resp B/P (MAP) Pulse Ox O2 Delivery O2 Flow Rate FiO2 01/07/18 08:00 98.0 60 18 125/80 98 Room Air 98.0 01/07/18 04:00 97.8 55 19 123/83 99 Room Air 97.8 01/07/18 04:00 99 Room Air 01/07/18 00:00 98.2 65 20 124/78 98 98.2 01/07/18 00:00 98 Room Air 01/06/18 20:00 95 Room Air 01/06/18 20:00 98.5 69 20 126/72 95 98.5 Intake and Output 01/06/18 01/07/18 19:00 07:00 Intake Total 1085.000 ml 403.708 ml Balance 1085.000 ml 403.708 ml Intake Oral 480 ml IV Total 605.000 ml 403.708 ml # Voids 2 1 Objective General Appearance: WD/WN HEENT: normocephalic, atraumatic Respiratory/Chest: chest wall non-tender, lungs clear Breasts: no masses Cardiovascular: normal peripheral pulses Abdomen: normal bowel sounds, soft, non tender Extremities: no cyanosis Skin: no rash 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
--- NOTE | 2018-01-08 15:35 | Discharge Summary ---
Discharge Summary Hospital Course Date of Admission Jan 01, 2018 at 16:38 Date of Discharge Jan 07, 2018 at 10:52 Admitting Diagnosis cellulitis HPI Neto Jimenez is a 57 year old male who was admitted on Jan 01, 2018 at 16:38 for Cellulitis Hospital Course [id number] Discharge Discharge Disposition Patient was discharged to Home with Home Health(06) Discharge Diagnoses: Azul Cade NP Jan 08, 2018 15:35
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
--- NOTE | 2018-01-13 16:57 | Cardiology Report ---
APPROVED REPORT EKG Measurement Heart [id number] Normal sinus rhythm Minimal voltage criteria for LVH, may be normal variant Borderline ECG
== END 2018-01-07 10:52 | disposition home health service (06) | DRG 344 ==
LOC: EMR 13:10 → 4E 16:38 → EDBEDREQ 17:42
DX: M86.171 Other acute osteomyelitis, right ankle and foot (principal); L03.115 Cellulitis of right lower limb; I10 Essential (primary) hypertension; F19.10 Other psychoactive substance abuse, uncomplicated; Z59.0 Homelessness; F32.9 Major depressive disorder, single episode, unspecified; F60.81 Narcissistic personality disorder
CPT/HCPCS: 36415; 36569; 71045; 76937; 78315; 80048; 80053; 80202; 82550; 83605; 83735; 84100; 84484; 85025; 85651; 86140; 87040; 87070; 87081; 87205; 87324; 90471; 90715; 93005; 93970; 94664; 99285; S0077